=== PATIENT | female | born 1985 | race Caucasian/White ===

== ENCOUNTER 2016-10-21 07:16 | Emergency (ER) | payer BC, OTHER ==
[2016-10-21 07:42] VITALS: TEMP 98.6; O2SAT 100
[2016-10-21] MEDS: LIDOCAINE 1% 10 ML VIAL INJ ONE (07:44)
--- NOTE | 2016-10-21 08:04 | ED.PDOC ---
History of Present Illness - General Chief Complaint: Laceration Stated Complaint: laceration Time Seen by Provider: 10/21/16 07:20 Source: patient, RN notes reviewed, Vital Signs reviewed Exam Limitations: no limitations - History of Present Illness Initial Comments: Patient reports she sliced off part of the tip of her thumb with a vegetable slicer @ work. Moderate bleeding and pain. Timing/Duration: just prior to arrival Severity: moderate Location: hands - Right thumb Improving Factors: other - pressure Worsening Factors: nothing Associated Symptoms: denies symptoms Allergies/Adverse Reactions: Allergies NO KNOWN ALLERGY Allergy (Verified 10/21/16 07:42) Home Medications: Ambulatory Orders NK [NK] 10/21/16 Review of Systems - Review of Systems Constitutional: States: no symptoms reported Musculoskeletal: States: see HPI Skin: States: see HPI Neurological: States: no symptoms reported Past Medical History (General) - Patient Medical History Hx Asthma: No - Vaccination History Hx Tetanus, Diphtheria Vaccination: Yes - 2012 Hx Influenza Vaccination: No Hx Pneumococcal Vaccination: No - Social History Hx Tobacco Use: No Hx Alcohol Use: Yes - occasional Hx Substance Use: No Hx Substance Use Treatment: No Hx Depression: No - Activities of Daily Living Hospice Agency (if applicable):: None - Female History Patient is a Female of Child Bearing Age (10 -59 yrs old): Yes Patient : No Family Medical History - Family History Mother Family History: Unknown Physical Exam - Physical Exam General Appearance: Alert, Anxious, No apparent distress, Well Developed, Well Groomed, Well Hydrated, Well Nourished Neurologic: alert, normal mood/affect, oriented x 3 Skin Exam: warm/dry, normal color Skin Problem Location: upper extremities - Medial tip of R thumb including a portion of the nail have been completely avusled. 1X1.5cm defect. Non-suturable. Comments: Vital Signs - 24 hr 10/21/16 07:22 Temperature 98.6 F Pulse Rate [ 78 pulse ox] Respiratory 20 Rate Blood Pressure 117/73 [Left Arm] O2 Sat by Pulse 100 Oximetry Procedures - Laceration/Wound Repair Right Medial Distal Finger Wound Length (cm): 1.5 - complete avulsion of skin & portion of nail Wound's Depth, Shape: superficial, irregular Wound Explored: clean Betadine Prep?: No Anesthesia: 1% Lidocaine Volume Anesthetic (cc's): 3 Wound Debrided: minimal Number of Sutures: 0 - Bleeding controlled with Silver Nitrate Sterile Dressing Applied?: Yes - Vaseline gauze and pressure dressing Splint Applied?: Yes - Aluminum finger splint to protect wound Departure - Departure Clinical Impression: Accidental laceration Laceration of thumb, right Qualifiers: Encounter type: initial encounter Qualified Code(s): S61.011A - Laceration without foreign body of right thumb without damage to nail, initial encounter Time of Disposition: 08:10 Disposition: Discharge to Home or Self Care Condition: Good Departure Forms: ED Discharge - Pt. Copy, Patient Portal Self Enrollment Instructions: DI for Avulsion Laceration (Not Requiring Sutures) Diet: resume usual diet Activity: increase activity as tolerated Referrals: Jeremy Membreno MD [Primary Care Provider] - 1-2 Weeks Home Medications: Ambulatory Orders NK [NK] 10/21/16
[2016-10-21 08:24] VITALS: BP 119/78
== END 2016-10-21 08:26 | disposition home or self-care (01) ==
LOC: ER 07:16
DX: S61.111A Laceration without foreign body of right thumb with damage to nail, initial encounter (principal); W45.8XXA Other foreign body or object entering through skin, initial encounter; Y93.G1 Activity, food preparation and clean up; Y99.0 Civilian activity done for income or pay

== ENCOUNTER 2017-03-12 12:34 | Observation (INO) | payer OTHER ==
--- NOTE | 2017-03-12 13:00 | ED.PDOC ---
History of Present Illness - General Chief Complaint: GI Problem Stated Complaint: N/V Time Seen by Provider: 03/12/17 12:55 Information Source: patient, RN notes reviewed, Vital Signs reviewed Exam Limitations: no limitations - History of Present Illness Initial Comments: Patient comes in with c/o of nausea and vomiting for 5 days. She is not able to keep anything down. She saw her PCP and CBC & CMP were normal. She denies any fever, chills, abdominal pain or change in bowel habits. She did have a gastric sleeve ~2.5 months ago but has not had similar symptoms prior to this episode. Abdominal Pain Onset Location: other - No pain Pain Radiation: no radiation Timing/Duration: days - 5, constant Improving Factors: nothing Worsening Factors: nothing Associated Symptoms: nausea/vomiting Review of Systems - Review of Systems Constitutional: States: malaise. Denies: chills, fever EENTM: States: no symptoms reported Respiratory: States: no symptoms reported Cardiology: States: no symptoms reported Gastrointestinal/Abdominal: States: nausea, vomiting. Denies: abdominal pain, constipation, diarrhea Genitourinary: States: no symptoms reported Musculoskeletal: States: no symptoms reported Skin: States: no symptoms reported Neurological: States: no symptoms reported All other Systems: No Change from Baseline Past Medical History (General) - Patient Medical History Hx Asthma: No - Vaccination History Hx Tetanus, Diphtheria Vaccination: Yes - 2012 Hx Influenza Vaccination: No Hx Pneumococcal Vaccination: No - Social History Hx Tobacco Use: No Hx Alcohol Use: Yes - occasional Hx Substance Use: No Hx Substance Use Treatment: No Hx Depression: No - Female History Patient : No Family Medical History - Family History Mother Family History: Unknown Physical Exam - Physical Exam General Appearance: Alert, No apparent distress, Ill Appearing, Well Developed, Well Groomed, Well Nourished Eyes, Ears, Nose, Throat Exam: other - Dry mucous membranes Neck: supple, normal inspection Respiratory: lungs clear, normal breath sounds, no respiratory distress, no accessory muscle use Cardiovascular/Chest: regular rate, rhythm, no edema, no gallop, no JVD, no murmur Gastrointestinal/Abdominal: non tender, soft, no organomegaly, no pulsatile mass , abnormal bowel sounds - hypoactive Extremity: normal inspection Neurologic: alert, normal mood/affect, oriented x 3 Skin Exam: normal color, warm/dry Comments: Vital Signs 03/12/17 12:37 Temperature 98.1 F Pulse Rate [ 76 LEFT BRACHIAL] Respiratory 18 Rate Blood Pressure 119/83 [LEFT BRACHIAL] O2 Sat by Pulse 97 Oximetry Progress - Progress Progress: 03/12/17 14:55 Discussed patient with Hospitalist, Sarah Barragan NP who will admit patient for hydration and further workup to determine cause of isolated nausea and vomiting. - Results/Orders Results/Orders: Laboratory Tests 03/12/17 03/12/17 03/12/17 13:20 13:20 14:05 WBC 9.1 RBC 4.77 Hgb 13.1 Hct 40.2 MCV 84.3 MCH 27.4 MCHC 32.5 L RDW 16.2 H Plt Count 405 H MPV 8.3 Absolute Neuts (auto) 7.60 H Absolute Lymphs (auto) 1.10 Absolute Monos (auto) 0.30 Absolute Eos (auto) 0.00 Absolute Basos (auto) 0.00 Neutrophils % 83.8 H Lymphocytes % 12.5 L Monocytes % 3.4 Eosinophils % 0.0 L Basophils % 0.3 Sodium 138 Potassium 3.6 Chloride 106 Carbon Dioxide 16 L Anion Gap 19.6 H BUN < 5 L Creatinine 0.58 L BUN/Creatinine Ratio 8.6 L Random Glucose 107 H Serum Osmolality 273.1 L Calcium 9.6 Total Bilirubin 1.3 H AST 20 ALT 13 Alkaline Phosphatase 64 Serum Total Protein 8.5 H Albumin 4.5 Globulin 4.0 H Albumin/Globulin Ratio 1.1 Amylase 41 Lipase 24 Urine Color Urine Appearance Urine pH Ur Specific [place] Urine Protein Urine Glucose (UA) Urine Ketones Urine Blood Urine Nitrite Urine Bilirubin Urine Urobilinogen Ur Leukocyte Esterase Urine RBC Urine WBC Ur Epithelial Cells Urine Bacteria Fine Granular Casts Urine Mucus Urine HCG, Qual Negative 03/12/17 14:05 WBC RBC Hgb Hct MCV MCH MCHC RDW Plt Count MPV Absolute Neuts (auto) Absolute Lymphs (auto) Absolute Monos (auto) Absolute Eos (auto) Absolute Basos (auto) Neutrophils % Lymphocytes % Monocytes % Eosinophils % Basophils % Sodium Potassium Chloride Carbon Dioxide Anion Gap BUN Creatinine BUN/Creatinine Ratio Random Glucose Serum Osmolality Calcium Total Bilirubin AST ALT Alkaline Phosphatase Serum Total Protein Albumin Globulin Albumin/Globulin Ratio Amylase Lipase Urine Color Yellow Urine Appearance Clear Urine pH 5.5 Ur Specific [place] >= 1.030 Urine Protein 100 H Urine Glucose (UA) Negative Urine Ketones >=160 Urine Blood Negative Urine Nitrite Negative Urine Bilirubin Small H Urine Urobilinogen 0.2 Ur Leukocyte Esterase Negative Urine RBC 0-1 Urine WBC 1-3 Ur Epithelial Cells 1-3 Urine Bacteria 1+ Fine Granular Casts 0-1 Urine Mucus Trace Urine HCG, Qual Departure - Departure Clinical Impression: Nausea & vomiting Qualifiers: Vomiting type: bilious vomiting Qualified Code(s): R11.14 - Bilious vomiting Time of Disposition: 14:55 Disposition: Admit Patient Condition: Fair Departure Forms: ED Discharge - Pt. Copy, Patient Portal Self Enrollment Referrals: Hasmukh Scherer MD [Primary Care Provider] - 1-2 Weeks Home Medications: Ambulatory Orders NK [NK] 10/21/16 Decision To Admit - Decistion To Admit Decision to Admit Reason: Admit from ER Decision to Admit Date: 03/12/17 Decision to Admit Time: 14:54
[2017-03-12] MEDS ORDERED: ONDANSETRON INJ 4 MG/2 ML VIAL IV ONE (13:01)
[2017-03-12] MEDS ORDERED: SODIUM CHLORIDE 0.9% 1000ML 1,000 ML IVS ONE ×2 (13:01→14:29)
[2017-03-12] MEDS ORDERED: PROMETHAZINE HCL INJ 12.5 MG in SODIUM CHLORIDE 0.9% 50ML 50 ML IVPB ONE (14:29)
[2017-03-12] MEDS ORDERED: PROMETHAZINE HCL INJ 25 MG/ML VIAL ONE (14:37)
[2017-03-12] MEDS ORDERED: SODIUM CHLORIDE 0.9% 50ML 50 ML ONE (14:37)
--- NOTE | 2017-03-12 15:13 | HP ---
SUPERVISING PHYSICIAN: Hasmukh Scherer MD CHIEF COMPLAINT: Nausea and vomiting times five days. HISTORY OF PRESENT ILLNESS: This is a 31-year-old female patient who has a history of a gastric sleeve done by Dr. Mccracken in [place] approximately 2-1/2 months ago. Postoperatively, she had no problems and actually is on no home medications. For about the last five days, she has had nausea and vomiting without any significant abdominal pain. She saw Jennifer Galvin at [facility] yesterday and her CBC and CMP were within normal limits. She had no fever, chills, abdominal pain or change in bowel habits. She has just been unable to eat anything solid and has five to ten episodes a day. She came to the Emergency Room. Her WBCs are normal at 9.1 with a very slight shift with neutrophils of 83.8%. Hemoglobin and hematocrit are stable at 13.1 and 40.2. Sodium 138, potassium 3.6, chloride 106, carbon dioxide 16, BUN less than 5, creatinine 0.58, glucose 107, serum osmolality 273.1, total bilirubin 1.3, AST 20, ALT 13, alkaline phosphatase 64, serum total protein 8.5, albumin 4.5, globulin 4.0, amylase 41, lipase 24. Urine was basically within normal limits with the exception that her urine protein is high at 100 and urine bilirubin shows a small amount. She received IV fluids in the Emergency Room as well as Zofran and Phenergan. At this point, she has not had anymore nausea or vomiting , but I was called for admission. PAST MEDICAL HISTORY: 1. Anemia many years ago. She has had no problems in the last five years or so. 2. Obesity. PAST SURGICAL HISTORY: 1. D&C in 2004. 2. Tubal ligation in 2007. 3. Laser eye surgery in 2002. 4. Gastric sleeve 12/25/16. OUTPATIENT MEDICATIONS: None. ALLERGIES: NO KNOWN DRUG ALLERGIES. FAMILY HISTORY: Unknown because she is adopted, but she does have two healthy daughters. SOCIAL HISTORY: She is . She lives in [place]. She has two children. She quit smoking when she was in high school. She previously drank alcohol on a social basis only, but since her surgery in November, she has not had any alcohol. She denies any illicit drug use. REVIEW OF SYSTEMS: GENERAL: Positive for fatigue. Negative for fever or weight changes other than her weight she has lost post gastric sleeve. She weighed approximately 220 pounds prior to her surgery. HEENT: Denies sinus symptoms, ear pain, vision changes or sore throat. RESPIRATORY: Denies wheezing, coughing or shortness of breath. CARDIAC: Denies chest pain, palpitations or tachycardia. GASTROINTESTINAL: As per history of present illness. GENITOURINARY: Denies hematuria, dysuria or polyuria. SKIN: Denies lesions or rashes. NEUROLOGIC: Positive for weakness. Negative for headache or seizures. PHYSICAL EXAMINATION: VITAL SIGNS: Afebrile. Heart rate 76. Blood pressure 119/83. Respiratory rate 18. O2 saturation 97% on room air. GENERAL: This is a 31-year-old female patient who looks moderately ill, lying in her hospital bed. HEENT: Normocephalic, atraumatic. Pupils are equal and reactive. Oropharynx is clear. Oral mucous membranes are somewhat dry. NECK: Supple without mass. RESPIRATORY: Clear to auscultation bilaterally. CHEST: There is equal rise and fall of the chest with inspiration and expiration. CARDIOVASCULAR: Regular rate and rhythm. ABDOMEN: Soft, nondistended, nontender. Bowel sounds are positive. There is no rebound tenderness. There is no guarding. SKIN: No lesions or rashes, but she does have slightly poor skin turgor of approximately 3 seconds. NEUROLOGIC: She is sleepy, but she is oriented times three. LABORATORY: Per the history of present illness. There are no films to report at this time. ASSESSMENT: 1. Intractable nausea and vomiting of unknown etiology, may be due to a complication from her gastric sleeve although she did not have any postoperative complications. Cannot rule out some gastroenteritis. 2. Dehydration, most likely secondary to #1. 3. History of obesity with recent gastric sleeve done in [place] by Dr. Mccracken on 12/25/16. PLAN: We will place the patient in observation. She has received 1 liter of fluids in the Emergency Room. I will put her on some fluids here in the hospital. I have ordered an abdominal x-ray as well as an abdominal and pelvic sonogram. Hopefully this will be self-limiting and she can be discharged in the next day or two. We may need to call Dr. Mccracken tomorrow in [place], but as for now, we will continue supportive care. I ordered Zofran for nausea. I will also order a proton pump inhibitor for ulcer prophylaxis. I will hold off on Lovenox for now, but she will get SCD hose for DVT prophylaxis. I have ordered labs for in the morning. We may need to do an abdominal CT. She is NPO except for a few ice chips. We will monitor closely and follows as needed. Dr. Scherer is the collaborating physician and available for consultation. #[id number] [facility]
[2017-03-12] MEDS ORDERED: SODIUM CHLORIDE 0.9% (FLUSH) 10 ML SYG IV PRN (16:02)
[2017-03-12] MEDS ORDERED: IV SET AND CAP CHANGE INJ INJ SCH (16:30)
[2017-03-12] MEDS: KCL 20MEQ/D5 1/2NS 1,000 ML IVS PRN (17:24)
[2017-03-12] MEDS: ONDANSETRON INJ 4 MG/2 ML VIAL IV PRN (20:07)
--- NOTE | 2017-03-12 20:45 | US ---
EXAM DESCRIPTION: Abdomen,Complete CLINICAL HISTORY: 31 years Female, abd pain COMPARISON: None. TECHNIQUE: Grayscale, waveform, and color Doppler images of the abdomen are acquired. FINDINGS: Pancreas: The pancreatic head is obscured by overlying bowel gas. Liver: Echogenic liver parenchyma. Gallbladder: No stones or wall thickening. Biliary ducts: The common bile duct measures 3 mm. Right Kidney: Measures 10 cm. No stones or hydronephrosis. Left kidney: Measures 9 cm. No stones or hydronephrosis. Spleen: Measures 9.7 cm. No focal lesions. Aorta: Proximal aorta measures 2 cm, mid aorta measures 1.5 cm, distal aorta measures 1.4 cm. Partially visualized IVC is unremarkable. IMPRESSION: No findings to suggest cholelithiasis or cholecystitis Diffuse hepatic steatosis. Electronically signed by: Ibrahima Ca MD 03/12/2017 8:44 PM CDT
--- NOTE | 2017-03-12 21:25 | US ---
EXAM DESCRIPTION: Pelvic,Non-OB CLINICAL HISTORY: 31 years, Female, abd pain COMPARISON: None. TECHNIQUE: Grayscale, waveform, and color Doppler ultrasound images of the pelvis were acquired via endovaginal apprach. FINDINGS: Uterus: Retroverted uterus measuring 6.9 x 4.1 x 5.0 cm. No mass or fibroid. Endometrium: Endometrial stripe measures 4 mm. Right Adnexa: Measures 1.6 x 1.2 x 0.7 cm. Normal Doppler flow. No adnexal mass. Left Adnexa: Measures 3.3 x 1.8 x 3 cm. Normal Doppler flow. Multiple ovarian follicles. No adnexal mass. IMPRESSION: No evidence of ovarian torsion or adnexal mass. Electronically signed by: Ibrahima Ca MD 03/12/2017 9:24 PM CDT
[2017-03-12] MEDS ORDERED: PANTOPRAZOLE SODIUM IV 40 MG VIAL IV SCH (22:00)
[2017-03-13] MEDS: KCL 20MEQ/D5 1/2NS 1,000 ML IVS PRN ×2 (00:29→08:30)
[2017-03-13] MEDS: ONDANSETRON INJ 4 MG/2 ML VIAL IV PRN ×2 (05:30→08:36)
[2017-03-13] MEDS ORDERED: PROMETHAZINE HCL INJ 25 MG/ML VIAL ONE ×2 (10:24→13:44)
[2017-03-13] MEDS ORDERED: SODIUM CHLORIDE 0.9% 50ML 50 ML ONE ×2 (10:25→13:45)
[2017-03-13] MEDS ORDERED: PROMETHAZINE HCL INJ 25 MG in SODIUM CHLORIDE 0.9% 50ML 50 ML IVPB ONE ×2 (10:28→13:39)
--- NOTE | 2017-03-13 11:58 | RAD ---
EXAM DESCRIPTION: UGI with Gastrografin. CLINICAL HISTORY: abd pain s/p gastric sleeve 2months ago. Severe nausea and vomiting. COMPARISON: Ultrasound abdomen and pelvis today. Abdominal radiographs. TECHNIQUE: The patient attempted to swallow the barium pill but became nauseous. Patient was able to swallow five small mouthfuls of Gastrografin mixed with water and apple juice. Patient was nauseated throughout the exam with several episodes of vomiting. Initially pretreated but examination was terminated due to nausea and vomiting. Patient returned to her room for additional treatment. Patient terminated the second phase of the exam prior to completion. 4 fluoroscopic images taken. Two supine abdomen images obtained. Permanent images of this procedure are stored in the patient's medical record. Fluoroscopy time was 1.2 minutes. Cumulative dose: 29.57 mGy. FINDINGS: No gastroesophageal obstruction. Fundus and body of stomach not well distended. There may be a small herniation of the fundus. In the supine position, a small focal protrusion of contrast is noted on the greater curvature where the sleeve is positioned. A radiodense amorphous band can be seen from the fundus to this focal protrusion along the greater curvature. No gastroduodenal obstruction. Contrast reached the proximal ileum when the exam was terminated. IMPRESSION: 1. Suboptimal examination due to patient nausea vomiting and patient terminating the exam before completion. 2. No gastroesophageal or gastroduodenal obstruction or proximal small bowel obstruction. 3. Question of an ulceration in the greater curvature of the stomach underneath the mid-sleeve. Consider EGD evaluation. The findings were discussed via telephone with Ms. Sarah Barragan, Registered Nurse Practitioner at approximately 1140 hours on 03/13/2017. Electronically signed by: Ganesh Martinez MD 03/13/2017 11:56 AM CDT
[2017-03-13] MEDS ORDERED: MULTIPLE VITAMIN INJ 10 ML, THIAMINE HCL INJ 100 MG in SODIUM CHLORIDE 0.9% 1000ML 1,00... IVS ONE (13:39)
[2017-03-13] MEDS ORDERED: THIAMINE HCL INJ 100 MG/ML VIAL ONE (13:44)
[2017-03-13] MEDS ORDERED: SODIUM CHLORIDE 0.9% 1000ML 1,000 ML ONE (13:44)
[2017-03-13] MEDS ORDERED: MULTIPLE VITAMIN 10 ML VIAL ONE (13:45)
[2017-03-13 15:04] VITALS: BP 114/77; TEMP 98.3; O2SAT 100
--- NOTE | 2017-03-13 16:37 | DS ---
SUPERVISING PHYSICIAN: Hasmukh Scherer M.D. DISCHARGE DIAGNOSIS: 1. Intractable nausea and vomiting of unknown etiology maybe due to complications from her gastric sleeve, although she did not have any postoperative complications. 2. Dehydration most likely secondary to number 1. 3. History of obesity with recent gastric sleeve dump indicated by Dr. Mccracken on 12/25/16. HISTORY OF PRESENT ILLNESS: This is a 31-year-old female patient who has a history of a gastric sleeve done by Dr. Mccracken in [place] approximately 2-1/2 months ago. Postoperatively, she had no problems and actually is on no home medications. For about the last five days, she has had nausea and vomiting without any significant abdominal pain. She saw Jennifer Galvin at [facility] yesterday and her CBC and CMP were within normal limits. She had no fever, chills, abdominal pain or change in bowel habits. She has just been unable to eat anything solid and has five to ten episodes a day. She came to the Emergency Room. Her WBCs are normal at 9.1 with a very slight shift with neutrophils of 83.8%. Hemoglobin and hematocrit are stable at 13.1 and 40.2. Sodium 138, potassium 3.6, chloride 106, carbon dioxide 16, BUN less than 5, creatinine 0.58, glucose 107, serum osmolality 273.1, total bilirubin 1.3, AST 20, ALT 13, alkaline phosphatase 64, serum total protein 8.5, albumin 4.5, globulin 4.0, amylase 41, lipase 24. Urine was basically within normal limits with the exception that her urine protein is high at 100 and urine bilirubin shows a small amount. She received IV fluids in the Emergency Room as well as Zofran and Phenergan. At this point, she has not had anymore nausea or vomiting , but I was called for admission. HOSPITAL COURSE: The patient was placed in Observation in the hospital. An abdominal x-ray was done and per radiology interpretation showed no acute gastrointestinal issues. She also had an abdominal ultrasound that per radiology interpretation showed no findings to suggest cholelithiasis or cholecystitis, and diffuse hepatic steatosis. She continued to remain NPO as well as she received some ice chips. She was given Phenergan and Zofran for her nausea. Her vital signs remained stable. WBCs this morning were 7.8 with hemoglobin 11.8 and 35.6. Neutrophils normalized to 56.8%. I called her bariatric surgeon's office in [place]. It is recommended that we do an upper GI series with gastrograph. She initially went to radiology to have the study done and due to her nausea and vomiting, she could not tolerate the initial testing. She was then given some Phenergan and sent back for an upper GI series. The upper GI series per radiology interpretation showed suboptimal examination due to the patient's nausea and vomiting, and the patient terminating the exam before completion. No gastroesophageal or gastroduodenal obstruction or proximal small bowel obstruction. Question of an ulceration in the greater curvature of the stomach underneath the mid sleeve. Consider EGD evaluation. I reported the findings back to Dr. Mccrakcen' office. His office recommended that she receive 1 banana bag and be discharged to followup with her bariatric surgeon today in [place]. She received 1 bag of IV fluids with thiamine and multivitamins. She also received 25 mg of Phenergan IV. Her vital signs were stable. She was afebrile. Heart rate was 74, blood pressure 114/77, respiratory rate 16, O2 sat was 100%. PLAN: She is to see her bariatric surgeon today, Dr. Mccracken in [place]. She has a followup appointment with me, Sarah Barragan, on , 03/20/17 at 9:30 AM. She is to return to the hospital and followup with Dr. Scherer's office if there are any problems or complications. ER warnings were given to her. She was discharged home on her home medications. She was discharged home in stable condition. DISCHARGE MEDICATIONS: 1. Zofran. Dr. Scherer is the collaborating physician available for consultation. #[id number] [facility]
== END 2017-03-13 15:45 | disposition home or self-care (01) ==
LOC: ER 12:34 → MS 15:11
PROVIDERS: ADMIT Nurse Practitioner Acute Care; ATTEND Nurse Practitioner Acute Care
DX: E86.0 Dehydration (principal); E66.9 Obesity, unspecified; K76.0 Fatty (change of) liver, not elsewhere classified; Z68.31 Body mass index [BMI] 31.0-31.9, adult; Z98.84 Bariatric surgery status; Z86.2 Personal history of diseases of the blood and blood-forming organs and certain disorders involving the immune mechanism; Z87.891 Personal history of nicotine dependence
CPT/HCPCS: 36415 ×2; 74010; 74246; 76700; 76856; 80053 ×2; 81001; 81025; 82150; 83690; 85025 ×2; 94760 ×6; 96361 ×3; 96365; 96366; 96367; 96375 ×2; 96376 ×2; 99284; A4216 ×3; G0378; J2405 ×4; J2550 ×3; J3411; J7030 ×3

== ENCOUNTER → 2018-06-24 | Outpatient (CLI) | payer BC, OTHER | LOC: GMAM 11:48 | PROVIDERS: ATTEND Family Medicine | DX: E53.8 Deficiency of other specified B group vitamins (principal); D64.9 Anemia, unspecified ==

== ENCOUNTER → 2020-07-04 | Outpatient (CLI) | payer BC | LOC: GMAM 11:43 | PROVIDERS: ATTEND Family Medicine | DX: Z01.812 Encounter for preprocedural laboratory examination (principal) ==